=== PATIENT | male | born 1970 ===

== ENCOUNTER 2016-08-15 22:04 | Emergency (ER) | payer BC ==
[2016-08-15] MEDS ORDERED: HYDROCODONE/APAP 5/325MG TABLET PO ONE (22:55)
[2016-08-15] MEDS ORDERED: PROMETHAZINE HCL 25 MG/ML VIAL IM ONE (23:18)
[2016-08-15] MEDS ORDERED: HYDROMORPHONE HCL 2 MG/ML VIAL IM ONE (23:18)
--- NOTE | 2016-08-15 23:52 | Emergency Department Record ---
History of Present Illness - General Chief complaint: Extremity Problem Stated complaint: LT HAND RING FINGER INJURY Time Seen by Provider: 08/15/16 22:52 Source: Patient Mode of Arrival: Ambulatory Limitations: No limitations - History of Present Illness Initial comments: pt smashed finger 2 days ago. now it is swelling and his ring is getting tight. ring is made of nasir RODRIGUES Complaint: Extremity pain, Joint pain, Joint swelling Onset/Timin -: Days(s) Location: Left History of Same: No Consistency: Constant Improves with: Cold therapy, Elevation Worsens with: Exertion, Palpation Associated Symptoms: Denies other symptoms - Related Data Home Medications Medication Instructions Recorded Confirmed Last Taken Aspirin [Adult Low Dose Aspirin EC] 81 mg PO DAILY 06/12/16 06/12/16 08/14/16 Metformin HCl 1,000 mg PO BID 06/12/16 06/12/16 08/14/16 Albuterol Sulfate [Ventolin Hfa] #18 08/06/16 08/14/16 Promethazine HCl/Codeine #150 08/06/16 08/14/16 [Promethazine-Codeine Syrup] Previous Rx's Medication Instructions Recorded Ondansetron [Zofran Odt] 4 mg PO Q8H #10 tab.rapdis 06/12/16 Hydrocodone/Acetaminophen [[place] 1 tab PO Q6H PRN #10 tab 08/16/16 5mg/325mg] Allergies Allergy/AdvReac Type Severity Reaction Status Date / Time No Known Drug Allergies Allergy Verified 08/15/16 22:32 Travel Screening - Travel/Exposure Within Last 30 Days Have you traveled within the last 30 days?: No - Travel/Exposure Within Last Year Have you traveled outside the [place] in the last year?: No - Additonal Travel Details Have you been exposed to anyone with a communicable illness?: No - Travel Symptoms Symptom Screening: None Review of Systems Reviewed: No additional complaints except as noted below Constitutional: Reports: As per HPI. Denies: Chills, Fever, Malaise, Night sweats, Weakness, Weight change Eyes: Reports: As per HPI. Denies: Eye discharge, Eye pain, Photophobia, Vision change ENT: Reports: As per HPI. Denies: Congestion, Dental pain, Ear pain, Epistaxis , Hearing loss, Throat pain Respiratory: Reports: As per HPI. Denies: Cough, Dyspnea, Hemoptysis, Stridor, Wheezes Cardiovascular: Reports: As per HPI. Denies: Arrhythmia, Chest pain, Dyspnea on exertion, Edema, Murmurs, Orthopnea, Palpitations, Paroxysmal nocturnal dyspnea, Rheumatic Fever, Syncope Endocrine: Reports: As per HPI. Denies: Fatigue, Heat or cold intolerance, Polydipsia, Polyuria Gastrointestinal: Reports: As per HPI. Denies: Abdominal pain, Constipation, Diarrhea, Hematemesis, Hematochezia, Melena, Nausea, Vomiting Genitourinary: Reports: As per HPI. Denies: Dysuria, Frequency, Hematuria, Incontinence, Retention, Testicular pain, Testicular mass, Urgency Musculoskeletal: Reports: As per HPI. Denies: Arthralgia, Back pain, Gout, Joint swelling, Myalgia, Neck pain Skin: Reports: As per HPI. Denies: Bruising, Change in color, Change in hair/ nails, Lesions, Pruritus, Rash Neurological: Reports: As per HPI. Denies: Abnormal gait, Confusion, Headache, Numbness, Paresthesias, Seizure, Tingling, Tremors, Vertigo, Weakness Psychiatric: Reports: As per HPI. Denies: Anxiety, Auditory hallucinations, Depression, Homicidal thoughts, Suicidal thoughts, Visual hallucinations Hematological/Lymphatic: Reports: As per HPI. Denies: Anemia, Blood Clots, Easy bleeding, Easy bruising, Swollen glands Past Medical History - SOCIAL HISTORY Smoking Status: Never smoker Alcohol Use: Rare Drug Use: None - RESPIRATORY Hx Respiratory Disorders: No - CARDIOVASCULAR Hx Cardio Disorders: Yes Hx Heart Attack: Yes (01/2016) Hx Hypertension: Yes Comment:: high cholesterol - NEURO Hx Neuro Disorders: No - GI Hx GI Disorders: Yes Hx Diverticulitis: Yes - Hx Genitourinary Disorders: No - ENDOCRINE Hx Endocrine Disorders: Yes Hx Diabetes: Yes - MUSCULOSKELETAL Hx Musculoskeletal Disorders: No - PSYCH Hx Psych Problems: No - HEMATOLOGY/ONCOLOGY Hx Hematology/Oncology Disorders: No Family Medical History Any Significant Family History?: No Family Hx Comment (NOT TO BE USED IN PLACE OF ITEMS BELOW): denies Physical Exam - General General Appearance: Alert, Oriented x3, Cooperative, Mild distress - Head Head exam: Normal inspection - Eye Eye exam: Normal appearance, PERRL, EOMI Pupils: Normal accommodation - ENT ENT exam: Normal exam, Mucous membranes moist, Normal external ear exam, Normal orophraynx, TM's normal bilaterally Ear exam: Normal external inspection. negative: External canal tenderness Nasal Exam: Normal inspection. negative: Discharge, Sinus tenderness Mouth exam: Normal external inspection, Tongue normal Teeth exam: Normal inspection. negative: Dental caries Throat exam: Normal inspection. negative: Tonsillar erythema, Tonsillar exudate - Neck Neck exam: Normal inspection, Full ROM. negative: Tenderness - Respiratory Respiratory exam: Normal lung sounds bilaterally. negative: Respiratory distress - Cardiovascular Cardiovascular Exam: Regular rate, Normal rhythm, Normal heart sounds - GI/Abdominal GI/Abdominal exam: Soft, Normal bowel sounds. negative: Tenderness - Rectal Rectal exam: Deferred - exam: Deferred - Extremities Extremities exam: Normal inspection, Joint swelling, Normal capillary refill, Tenderness. negative: Full ROM Image of Hand: 1 - swelling and tenderness - Back Back exam: Reports: Normal inspection, Full ROM. Denies: Muscle spasm, Rash noted, Tenderness - Neurological Neurological exam: Alert, Normal gait, Oriented X3, Reflexes normal - Psychiatric Psychiatric exam: Normal affect, Normal mood - Skin Skin exam: Dry, Intact, Normal color, Warm Course Vital Signs 08/15/16 22:32 Temperature 98.1 F Pulse Rate 80 Respiratory 18 Rate Blood Pressure 134/66 Pulse Ox 95 - Reevaluation(s) Reevaluation #1: 08/15/16 23:54 an attempt was made to cut ring off with 3 different ring cutters but it would not give as it is made of tungsten. therefore, i wrapped finger in dental floss and was able to inch ring off, preserving finger and ring.. Reevaluation #2: 08/16/16 00:10 pts finger still has swelling and is unable to fully flex and extend. therefore pt will be sent to dr amos Medical Decision Making - Management Options MDM Management: No Additional Work-up Planned - Data Complexity MDM Data: X-Ray Ordered and/or Reviewed - Radiology Data Radiology results: Image reviewed -: Radiology Exam Interpreted by Myself Disposition Disposition: Discharge Clinical Impression: Tendon disorder Jammed interphalangeal joint of finger of left hand Qualifiers: Encounter type: initial encounter Qualified Code(s): S69.92XA - Unspecified injury of left wrist, hand and finger(s), initial encounter Disposition: Home, Self-Care Condition: (1) Good Instructions: Tendon Rupture (ED), Jammed Finger (ED) Additional Instructions: follow up with dr amos. ice and elevate. Prescriptions: Hydrocodone/Acetaminophen [[place] 5mg/325mg] 1 tab PO Q6H PRN #10 tab PRN Reason: Pain - General Referrals: ASHLEY AMOS [MEDICAL DOCTOR] - Forms: Patient Portal Access
--- NOTE | 2016-08-20 09:23 | RADIOLOGY REPORT ---
EXAM: LEFT HAND HISTORY: LEFT HAND PAIN. TECHNIQUE: Three views of the left hand were obtained. Comparison: None. Encounter: Initial. FINDINGS: Negative for fracture or dislocation. The soft tissues are unremarkable. The joint spaces are preserved. IMPRESSION: NEGATIVE LEFT HAND EXAMINATION. JOB NUMBER: [id number] MTDD
== END 2016-08-16 00:50 | disposition home or self-care (01) ==
LOC: ER 22:04
DX: S69.82XA Other specified injuries of left wrist, hand and finger(s), initial encounter (principal); S60.441A External constriction of left index finger, initial encounter; W22.01XA Walked into wall, initial encounter; W49.04XA Ring or other jewelry causing external constriction, initial encounter
CPT/HCPCS: 29130; 99283; 96372; 99284; 73130; J1170; J2550

== ENCOUNTER 2017-02-13 05:17 | Emergency (ER) | payer BC ==
[2017-02-13] MEDS ORDERED: ASPIRIN 81 MG CHEWABLE TABLET PO ONE (05:32)
[2017-02-13] MEDS: NITROGLYCERIN 0.4MG SL TABLET #25 BTL SL PRN ×3 (05:33→05:55)
[2017-02-13] MEDS ORDERED: ONDANSETRON HCL IV 4 MG/2 ML VIAL IVP ONE (05:37)
--- NOTE | 2017-02-13 05:44 | Emergency Department Record ---
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 he had stents in 10/23 and again in 01/23. he has nausea and radiation of the pain to his jaw and l arm. he was awakened w the pain MD Complaint: Chest pain Onset/Timin -: Minutes(s) Onset: Awoke with symptoms Pain Location: Left chest Pain Radiation: LUE Severity scale (1-10): 8 Quality: Tightness Consistency: Constant Improves With: Nothing Worsens With: Inspiration, Movement Anginal Symptoms: Nausea Treatments Prior to Arrival: None - Related Data Home Medications Medication Instructions Recorded Confirmed Last Taken Aspirin [Adult Low Dose Aspirin EC] 81 mg PO DAILY 06/12/16 02/13/17 02/13/17 Allergies Allergy/AdvReac Type Severity Reaction Status Date / Time No Known Drug Allergies Allergy Verified 02/13/17 05:18 Travel Screening - Travel/Exposure Within Last 30 Days Have you traveled within the last 30 days?: No - Travel Symptoms Symptom Screening: None Review of Systems Reviewed: No additional complaints except as noted below Constitutional: Reports: As per HPI. Denies: Chills, Fever, Malaise, Night sweats, Weakness, Weight change Eyes: Reports: As per HPI. Denies: Eye discharge, Eye pain, Photophobia, Vision change ENT: Reports: As per HPI. Denies: Congestion, Dental pain, Ear pain, Epistaxis , Hearing loss, Throat pain Respiratory: Reports: As per HPI. Denies: Cough, Dyspnea, Hemoptysis, Stridor, Wheezes Cardiovascular: Reports: As per HPI. Denies: Arrhythmia, Chest pain, Dyspnea on exertion, Edema, Murmurs, Orthopnea, Palpitations, Paroxysmal nocturnal dyspnea, Rheumatic Fever, Syncope Endocrine: Reports: As per HPI. Denies: Fatigue, Heat or cold intolerance, Polydipsia, Polyuria Gastrointestinal: Reports: As per HPI. Denies: Abdominal pain, Constipation, Diarrhea, Hematemesis, Hematochezia, Melena, Nausea, Vomiting Genitourinary: Reports: As per HPI. Denies: Dysuria, Frequency, Hematuria, Incontinence, Retention, Testicular pain, Testicular mass, Urgency Musculoskeletal: Reports: As per HPI. Denies: Arthralgia, Back pain, Gout, Joint swelling, Myalgia, Neck pain Skin: Reports: As per HPI. Denies: Bruising, Change in color, Change in hair/ nails, Lesions, Pruritus, Rash Neurological: Reports: As per HPI. Denies: Abnormal gait, Confusion, Headache, Numbness, Paresthesias, Seizure, Tingling, Tremors, Vertigo, Weakness Psychiatric: Reports: As per HPI. Denies: Anxiety, Auditory hallucinations, Depression, Homicidal thoughts, Suicidal thoughts, Visual hallucinations Hematological/Lymphatic: Reports: As per HPI. Denies: Anemia, Blood Clots, Easy bleeding, Easy bruising, Swollen glands Past Medical History - SOCIAL HISTORY Smoking Status: Never smoker - RESPIRATORY Hx Respiratory Disorders: No - CARDIOVASCULAR Hx Cardio Disorders: Yes Hx Heart Attack: Yes (2013, 01/2016) Hx Hypertension: Yes Comment:: high cholesterol - NEURO Hx Neuro Disorders: No - GI Hx GI Disorders: Yes Hx Diverticulitis: Yes - Hx Genitourinary Disorders: No - ENDOCRINE Hx Endocrine Disorders: Yes Hx Diabetes: Yes - MUSCULOSKELETAL Hx Musculoskeletal Disorders: No - PSYCH Hx Psych Problems: No - HEMATOLOGY/ONCOLOGY Hx Hematology/Oncology Disorders: No Family Medical History Any Significant Family History?: No Family Hx Comment (NOT TO BE USED IN PLACE OF ITEMS BELOW): denies Physical Exam - General General Appearance: Alert, Oriented x3, Cooperative, Mild distress - Head Head exam: Normal inspection - Eye Eye exam: Normal appearance, PERRL, EOMI Pupils: Normal accommodation - ENT ENT exam: Normal exam, Mucous membranes moist, Normal external ear exam, Normal orophraynx Ear exam: Normal external inspection. negative: External canal tenderness Nasal Exam: Normal inspection. negative: Discharge, Sinus tenderness Mouth exam: Normal external inspection, Tongue normal Teeth exam: Normal inspection. negative: Dental caries Throat exam: Normal inspection. negative: Tonsillar erythema, Tonsillar exudate - Neck Neck exam: Normal inspection, Full ROM. negative: Tenderness - Respiratory Respiratory exam: Normal lung sounds bilaterally. negative: Respiratory distress - Cardiovascular Cardiovascular Exam: Regular rate, Normal rhythm, Normal heart sounds - GI/Abdominal GI/Abdominal exam: Soft, Normal bowel sounds. negative: Tenderness - Rectal Rectal exam: Deferred - exam: Deferred - Extremities Extremities exam: Normal inspection, Full ROM, Normal capillary refill. negative: Tenderness - Back Back exam: Reports: Normal inspection, Full ROM. Denies: Muscle spasm, Rash noted, Tenderness - Neurological Neurological exam: Alert, CN II-XII intact, Normal gait, Oriented X3 - Psychiatric Psychiatric exam: Normal affect, Normal mood - Skin Skin exam: Dry, Intact, Normal color, Warm Course Vital Signs 02/13/17 05:19 Pulse Rate 89 Respiratory 14 Rate Blood Pressure 147/91 Pulse Ox 93 L - Reevaluation(s) Reevaluation #1: 02/13/17 06:19 pt feels better, still has some pain in elbow Reevaluation #2: 02/13/17 06:37 pt conts to feel better. d/w dr raya Medical Decision Making - Management Options MDM Management: Additional Work-up Planned (e.g. ADM/Transfer/OP Study) - Data Complexity MDM Data: Labs Ordered and/or Reviewed, X-Ray Ordered and/or Reviewed, EKG Ordered and/or Reviewed - Lab Data Result diagrams: 02/13/17 05:25 02/13/17 05:25 - EKG Data -: EKG Interpreted by Me EKG: Unchanged From Previous - Radiology Data Radiology results: Image reviewed -: Radiology Exam Interpreted by Myself Disposition Disposition: Transfer Clinical Impression: Chest pain Qualifiers: Chest pain type: chest pain due to myocardial ischemia Ischemic chest pain type : unstable angina pectoris Qualified Code(s): I20.0 - Unstable angina Disposition: Acute Care Hospital Transfer Transfer To: [facility] 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
[2017-02-13 05:55] LABS: HEMATOCRIT 45.1 % (42.0-52.0); HEMOGLOBIN 15.9 gm/dl (14.0-18.0); MEAN CELL VOLUME 85.6 fl (81-97); MEAN CORPUSCULAR HEMOGLOBIN 30.2 pg (27-33); MEAN CORPUSCULAR HGB CONC 35.3 g/dl (32-36); PLATELET COUNT 223 K/uL (130-400); RED BLOOD COUNT 5.27 M/uL (4.40-5.70); WHITE BLOOD COUNT W/O DIFF 9.8 K/uL (4.2-12.2)
[2017-02-13 06:05] LABS: ANION GAP 15.2 (7-16); BLOOD UREA NITROGEN 20 mg/dL (9-20); CARBON DIOXIDE 22.8 mmol/L (22-30); CREATINE PHOSPHOKINASE 301 U/L (55-170); CREATININE 0.9 mg/dL (0.66-1.25); EST GLOMERULAR FILTRATION RATE > 60 ml/min; GLUCOSE,RANDOM 179 mg/dL (70-110)
[2017-02-13 06:17] LABS: CKMB 2.2 ug/L (0-6)
[2017-02-13 06:18] LABS: TROPONIN I < 0.012 ng/mL (0.00-0.034)
[2017-02-13] MEDS ORDERED: ACETAMINOPHEN 325 MG TAB PO ONE (06:25)
[2017-02-13] MEDS ORDERED: HEPARIN SODIUM 1000 UNIT/1 ML 10ML VIAL IVP ONE (06:35)
[2017-02-13] MEDS ORDERED: HEPARIN SODIUM/D5W 25,000 UNITS/500 ML BAG IV SCH ×2 (06:45)
--- NOTE | 2017-02-13 08:15 | Emergency Department Record ---
History of Present Illness - General Chief Complaint: Chest Pain Stated Complaint: CHEST PAIN Time Seen by Provider: 02/13/17 05:29 Source: Patient Mode of Arrival: Ambulatory Limitations: No limitations - History of Present Illness Onset/Timin -: Minutes(s) Onset: Awoke with symptoms Pain Location: Left chest Pain Radiation: LUE Severity scale (1-10): 8 Quality: Tightness Consistency: Constant Improves With: Nothing Worsens With: Inspiration, Movement Anginal Symptoms: Nausea Treatments Prior to Arrival: None - Related Data Home Medications Medication Instructions Recorded Confirmed Last Taken Aspirin [Adult Low Dose Aspirin EC] 81 mg PO DAILY 06/12/16 02/13/17 02/13/17 Allergies Allergy/AdvReac Type Severity Reaction Status Date / Time No Known Drug Allergies Allergy Verified 02/13/17 05:18 Travel Screening - Travel/Exposure Within Last 30 Days Have you traveled within the last 30 days?: No - Travel Symptoms Symptom Screening: None Review of Systems Constitutional: Reports: As per HPI. Denies: Chills, Fever, Malaise, Night sweats, Weakness, Weight change Eyes: Reports: As per HPI. Denies: Eye discharge, Eye pain, Photophobia, Vision change ENT: Reports: As per HPI. Denies: Congestion, Dental pain, Ear pain, Epistaxis , Hearing loss, Throat pain Respiratory: Reports: As per HPI. Denies: Cough, Dyspnea, Hemoptysis, Stridor, Wheezes Cardiovascular: Reports: As per HPI. Denies: Arrhythmia, Chest pain, Dyspnea on exertion, Edema, Murmurs, Orthopnea, Palpitations, Paroxysmal nocturnal dyspnea, Rheumatic Fever, Syncope Endocrine: Reports: As per HPI. Denies: Fatigue, Heat or cold intolerance, Polydipsia, Polyuria Gastrointestinal: Reports: As per HPI. Denies: Abdominal pain, Constipation, Diarrhea, Hematemesis, Hematochezia, Melena, Nausea, Vomiting Genitourinary: Reports: As per HPI. Denies: Dysuria, Frequency, Hematuria, Incontinence, Retention, Testicular pain, Testicular mass, Urgency Musculoskeletal: Reports: As per HPI. Denies: Arthralgia, Back pain, Gout, Joint swelling, Myalgia, Neck pain Skin: Reports: As per HPI. Denies: Bruising, Change in color, Change in hair/ nails, Lesions, Pruritus, Rash Neurological: Reports: As per HPI. Denies: Abnormal gait, Confusion, Headache, Numbness, Paresthesias, Seizure, Tingling, Tremors, Vertigo, Weakness Psychiatric: Reports: As per HPI. Denies: Anxiety, Auditory hallucinations, Depression, Homicidal thoughts, Suicidal thoughts, Visual hallucinations Hematological/Lymphatic: Reports: As per HPI. Denies: Anemia, Blood Clots, Easy bleeding, Easy bruising, Swollen glands Past Medical History - SOCIAL HISTORY Smoking Status: Never smoker - RESPIRATORY Hx Respiratory Disorders: No - CARDIOVASCULAR Hx Cardio Disorders: Yes Hx Heart Attack: Yes (2013, 01/2016) Hx Hypertension: Yes Comment:: high cholesterol - NEURO Hx Neuro Disorders: No - GI Hx GI Disorders: Yes Hx Diverticulitis: Yes - Hx Genitourinary Disorders: No - ENDOCRINE Hx Endocrine Disorders: Yes Hx Diabetes: Yes - MUSCULOSKELETAL Hx Musculoskeletal Disorders: No - PSYCH Hx Psych Problems: No - HEMATOLOGY/ONCOLOGY Hx Hematology/Oncology Disorders: No Family Medical History Any Significant Family History?: No Family Hx Comment (NOT TO BE USED IN PLACE OF ITEMS BELOW): denies Physical Exam - General Limitations: No limitations Course Vital Signs 02/13/17 02/13/17 02/13/17 05:19 05:33 05:43 Pulse Rate 89 96 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 ] Respiratory 14 24 24 Rate Blood Pressure 147/91 Blood Pressure 151/83 131/69 [Right Arm] Pulse Ox 93 L 92 L 95 02/13/17 02/13/17 02/13/17 05:53 06:11 06:52 Pulse Rate Pulse Rate [ 92 H 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 ] Respiratory 18 24 24 Rate Blood Pressure Blood Pressure 126/68 130/90 135/84 [Right Arm] Pulse Ox 95 96 98 02/13/17 07:27 Pulse Rate Pulse Rate [ 80 Construction Laborer ] Respiratory 18 Rate Blood Pressure Blood Pressure 142/81 [Right Arm] Pulse Ox 96 - Reevaluation(s) Reevaluation #1: The case was signed over by Dr Nathan Awaiting a bed at [facility] Sleeping Negative initial troponin 02/13/17 07:05 02/13/17 08:14 Awake 0/10 pain Awaiting bed from [facility] records reviewed 2016 RCA and LAD stent 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 Reevaluation #2: The patient remains pain free Dr Lloyd called to receive and update [facility] called and a bed is ready, report called and EMS called for transport Patient is stable for transport 02/13/17 08:35 Medical Decision Making - Lab Data Result diagrams: 02/13/17 05:25 02/13/17 05:25 Lab Results 02/13/17 02/13/17 02/13/17 Range/Units 05:25 05:25 05:25 WBC 9.8 (4.2-12.2) K/uL RBC 5.27 (4.40-5.70) M/uL Hgb 15.9 (14.0-18.0) gm/dl Hct 45.1 (42.0-52.0) % MCV 85.6 (81-97) fl MCH 30.2 (27-33) pg MCHC 35.3 (32-36) g/dl RDW 13.0 (11.5-14.5) % Plt Count 223 (130-400) K/uL MPV 11.0 H (7.4-10.4) fl Neutrophils % 88.0 H (47-80) % Band Neutrophils % 0.0 (0-5) % Eosinophils % Not Reportable Basophils % Not Reportable Lymphocytes 7.0 L (16-45) % Monocytes 4.0 (0-9) % Basophils 0.0 (0-6) % Eosinophil Count 1.0 (0-6) % APTT 26.40 (24.5-39.1) SECONDS Sodium 138 (136-145) mmol/L Potassium 3.9 (3.5-5.1) mmol/L Chloride 100 (98-107) mmol/L Carbon Dioxide 22.8 (22-30) mmol/L Anion Gap 15.2 (7-16) BUN 20 (9-20) mg/dL Creatinine 0.9 (0.66-1.25) mg/dL Estimated GFR > 60 ml/min Random Glucose 179 H (70-110) mg/dL Calcium 9.3 (8.5-10.1) mg/dL Creatine Kinase 301 H (55-170) U/L CK-MB (CK-2) 2.2 (0-6) ug/L Troponin I < 0.012 (0.00-0.034) ng/mL Disposition Disposition: Transfer Clinical Impression: Chest pain Qualifiers: Chest pain type: chest pain due to myocardial ischemia Ischemic chest pain type : unstable angina pectoris Qualified Code(s): I20.0 - Unstable angina Disposition: Acute Care Hospital [facility] Reason For Transfer: Chest Pain Accepting Physician: Lloyd Time Discussed w/Accepting Physician: 08:36 Condition: (1) Good Forms: Patient Portal Access Time of Disposition: 08:36
--- NOTE | 2017-02-13 11:38 | RADIOLOGY REPORT ---
EXAM: PORTABLE CHEST HISTORY: DIFFICULTY BREATHING. TECHNIQUE: A portable semi-upright view of the chest was performed. FINDINGS: The heart size is normal. There is mild pulmonary vascular congestion. The osseous structures are normal. IMPRESSION: MILD PULMONARY VASCULAR CONGESTION. JOB NUMBER: [id number] MTDD
== END 2017-02-13 08:47 | disposition short-term general hospital (02) ==
LOC: ER 05:17
DX: I20.0 Unstable angina (principal); R11.0 Nausea; I25.2 Old myocardial infarction; I10 Essential (primary) hypertension; E11.9 Type 2 diabetes mellitus without complications
CPT/HCPCS: 99285 ×2; 96365; 96366; 96375; 82550; 85730; 82553; 84484; 80048; 85027; 71010; 93005; 93010; J2405

== ENCOUNTER 2017-07-02 19:38 | Emergency (ER) | payer BC ==
[2017-07-02] MEDS ORDERED: 0.9 % SODIUM CHLORIDE 1,000 ML BAG IV ONE (19:50)
[2017-07-02] MEDS ORDERED: ONDANSETRON HCL IV 4 MG/2 ML VIAL IV ONE (19:50)
[2017-07-02] MEDS ORDERED: MORPHINE SULFATE 5 MG/ML PFS IVP ONE ×2 (19:51→22:56)
--- NOTE | 2017-07-02 19:59 | Emergency Department Record ---
History of Present Illness - General Chief Complaint: Abdominal Pain Stated Complaint: SHARP PAIN IN LT RIB, BLOOD IN STOOL, VOMITING Time Seen by Provider: 07/02/17 19:41 Source: Patient, Family Mode of Arrival: Ambulatory Limitations: No limitations - History of Present Illness Initial Comments: 46 yo male presents with about 6 weeks of intermittent upper abdominal pain. The pain has been in the upper abdomen currently mostly in the LUQ. She has has some changes in appetite with some nausea and has vomited. No blood in the vomit. No diarrhea. The pain comes and goes. He has seen blood in his stools at times. None currently. The pain dose seem to worsen with eating. He did see his PCP. Labs and US were recently performed. He has a history of persistently elevated LFTS mildly. He denies a history of prior endoscopy. No current GI specialist. No fever. No rash. Occasional alcohol consumptions. PCP Fernander. RODRIGUES Complaint: Abdominal pain -: Week(s) (6) Location: LUQ Radiation: LUQ Migration to: LUQ Quality: Aching Consistency: Constant Improves With: Nothing Worsens With: Eating Context: Other Associated Symptoms: Anorexia, Hematochezia (occasionally), Nausea, Vomiting ( intermittently) - Related Data Home Medications Medication Instructions Recorded Confirmed Last Taken Atorvastatin Calcium [Atorvastatin 80 mg PO QPM 07/02/17 07/02/17 Unknown Calcium] Glipizide [Glucotrol] 5 mg PO DAILY 07/02/17 07/02/17 Unknown Losartan Potassium 25 mg PO DAILY 07/02/17 07/02/17 Unknown Magnesium Oxide [Magnesium] 400 mg PO DAILY 07/02/17 07/02/17 Unknown Previous Rx's Medication Instructions Recorded Ondansetron [Zofran Odt] 4 mg PO Q8H #20 tab.rapdis 07/02/17 Allergies Allergy/AdvReac Type Severity Reaction Status Date / Time No Known Drug Allergies Allergy Verified 07/02/17 19:43 Review of Systems Constitutional: Denies: Chills, Fever, Malaise, Weakness Eyes: Denies: Eye discharge, Eye pain, Photophobia, Vision change ENT: Denies: Congestion, Throat pain Respiratory: Denies: Cough, Dyspnea, Hemoptysis, Stridor, Wheezes Cardiovascular: Denies: Chest pain, Palpitations, Syncope Endocrine: Denies: Fatigue Gastrointestinal: Reports: Abdominal pain, Hematochezia (occasionally small amount noted), Nausea, Vomiting. Denies: Constipation, Diarrhea, Hematemesis, Melena Genitourinary: Denies: Dysuria, Frequency Musculoskeletal: Denies: Arthralgia, Back pain, Joint swelling, Myalgia Skin: Denies: Bruising, Change in color, Rash Neurological: Denies: Confusion, Headache, Numbness, Weakness Psychiatric: Denies: Anxiety Hematological/Lymphatic: Denies: Blood Clots, Easy bleeding, Easy bruising, Swollen glands Past Medical History - SOCIAL HISTORY Smoking Status: Never smoker - RESPIRATORY Hx Respiratory Disorders: No - CARDIOVASCULAR Hx Cardio Disorders: Yes Hx Heart Attack: Yes (2013, 01/2016) Hx Hypertension: Yes Comment:: high cholesterol - NEURO Hx Neuro Disorders: No - GI Hx GI Disorders: Yes Hx Diverticulitis: Yes - Hx Genitourinary Disorders: No - ENDOCRINE Hx Endocrine Disorders: Yes Hx Diabetes: Yes - MUSCULOSKELETAL Hx Musculoskeletal Disorders: No - PSYCH Hx Psych Problems: No - HEMATOLOGY/ONCOLOGY Hx Hematology/Oncology Disorders: No Family Medical History Family Hx Comment (NOT TO BE USED IN PLACE OF ITEMS BELOW): denies Physical Exam - General General Appearance: Alert, Oriented x3, Cooperative, No acute distress Limitations: No limitations - Head Head exam: Atraumatic - Eye Eye exam: Normal appearance, PERRL. negative: Conjunctival injection, Scleral icterus Pupils: Normal accommodation - ENT ENT exam: Normal exam, Mucous membranes moist Ear exam: Normal external inspection Nasal Exam: Normal inspection Mouth exam: Normal external inspection - Neck Neck exam: Normal inspection - Respiratory Respiratory exam: Normal lung sounds bilaterally. negative: Respiratory distress - Cardiovascular Cardiovascular Exam: Regular rate, Normal rhythm, Normal heart sounds - GI/Abdominal GI/Abdominal exam: Soft, Normal bowel sounds, Tenderness (Tender epigastric to LUQ). negative: Distended, Guarding, Hypoactive bowel sounds, Mass, Organomegaly, Rebound, Rigid - Rectal Rectal exam: Heme (+) stool, Normal inspection. negative: Hemorrhoids - exam: Deferred - Extremities Extremities exam: Normal inspection, Full ROM, Normal capillary refill. negative: Tenderness - Back Back exam: Reports: Normal inspection, Full ROM. Denies: CVA tenderness (R), CVA tenderness (L), Muscle spasm, Paraspinal tenderness, Rash noted, Tenderness , Vertebral tenderness - Neurological Neurological exam: Alert, Normal gait, Oriented X3 - Psychiatric Psychiatric exam: Normal affect, Normal mood - Skin Skin exam: Dry, Intact, Normal color, Warm Course - Reevaluation(s) Reevaluation #1: The EMR was reviewed Abdominal US was reviewed from 07/01/17 Limited, Coarse liver texture, Rec CT due to limited US. LFT 07/01/17 Tbili .6, AST 86, ALT 135, AP 93 07/02/17 19:54 07/02/17 20:12 No acute changes on the CBC. WBC is 6.2 with Hgb of 15.2. No changes from most recent labs. 07/02/17 20:26 The LFT's were reviewed No acute changes The Lipase and Amylase were normal 07/02/17 22:35 CT was read as steatosis no other acute process. 07/02/17 23:44 I reviewed the labs, the CT scan and exam No acute changes on the labs or CT The patient was referred to GI for his symptoms His information will be provided to his PCP to facilitate an outpatient work up Medical Decision Making - Lab Data Result diagrams: 07/02/17 19:52 07/02/17 19:52 Disposition Disposition: Discharge Clinical Impression: Abdominal pain Disposition: Home, Self-Care Condition: (1) Good Instructions: Abdominal Pain (ED) Additional Instructions: Return or go to an ER if worse, fever, pain, or new concerns You will need to follow up this week with your doctor as well to plan additional work up Prescriptions: Ondansetron [Zofran Odt] 4 mg PO Q8H #20 tab.rapdis Referrals: ESHA REN [DOCTOR OF OSTEOPATH] - [facility] [Provider Group] Forms: Patient Portal Access Time of Disposition: 22:42 Quality - Quality Measures Quality Measures: N/A - Blood Pressure Screening Does Patient Have Any of the Following: No Blood Pressure Classification: Hypertensive Reading Systolic Measurement: 148 Diastolic Measurement: 75 Screening for High Blood Pressure: < Pre-Hypertensive BP, F/U Documented > [ [id number]] Pre-Hypertensive Follow-up Interventions: Referral to alternative/primary care provider.
[2017-07-02 20:01] LABS: BASO % 0.5 % (0-6); EOS % 3.2 % (0-6); HEMATOCRIT 42.7 % (42.0-52.0); HEMOGLOBIN 15.2 gm/dl (14.0-18.0); LYMPH % 27.3 % (16-45); MEAN CELL VOLUME 82.9 fl (81-97); MEAN CORPUSCULAR HEMOGLOBIN 29.5 pg (27-33); MEAN CORPUSCULAR HGB CONC 35.6 g/dl (32-36); PLATELET COUNT 212 K/uL (130-400); RED BLOOD COUNT 5.15 M/uL (4.40-5.70); RED CELL DISTRIBUTION WIDTH 12.7 % (11.5-14.5); WHITE BLOOD COUNT W/O DIFF 6.6 K/uL (4.2-12.2)
[2017-07-02 20:15] LABS: BLOOD UREA NITROGEN 18 mg/dL (6-20); EST GLOMERULAR FILTRATION RATE > 60 mL/min; TOTAL PROTEIN 7.2 g/dL (6.6-8.7)
[2017-07-02 20:17] LABS: AMYLASE 41 U/L (28-100); GLUCOSE,RANDOM 237 mg/dL (74-109)
[2017-07-02 20:20] LABS: ALBUMIN 4.1 g/dL (4.0-5.0); ALKALINE PHOSPHATASE 110 U/L (40-129); ALT/SGPT 107 U/L (<41); AST/SGOT 58 U/L (10.0-50.0); LIPASE 35 U/L (13-60)
[2017-07-02 20:21] LABS: BILIRUBIN,DIRECT < 0.2 mg/dL (0-0.3)
[2017-07-02] MEDS ORDERED: HYDROCODONE/APAP 5/325MG TABLET PO ONE (22:56)
[2017-07-02] MEDS ORDERED: DICYCLOMINE HCL 10 MG CAPSULE PO ONE (22:56)
[2017-07-02] MEDS ORDERED: ONDANSETRON 4 MG ODT TABLET SL ONE (22:56)
--- NOTE | 2017-07-03 08:47 | CT SCAN REPORT ---
EXAM: CT SCAN OF THE ABDOMEN AND PELVIS HISTORY: LEFT UPPER QUADRANT SEVERE PAIN. NAUSEA AND VOMITING. FATTY STOOL. BLOOD IN STOOL. TECHNIQUE: Serial axial CT scan of the abdomen and pelvis was performed at 3.75 mm intervals from the dome of the diaphragm down to the pubic symphysis following the intravenous administration of 96 ml of Omnipaque 300. Oral contrast was administered. Comparison: CT scan of the abdomen and pelvis dated 06/12/16 is provided. FINDINGS: The lung windows of the lung bases are clear. The visualized heart size and contour is within normal limits. There is diffuse fatty infiltration identified throughout the liver. The contour and size of the liver is within normal limits. No suspicious hepatic lesions are identified. The spleen, pancreas, gallbladder, and adrenal glands are unremarkable. There is no CT evidence of hydronephrosis or hydroureter. No renal or ureteral calculi are noted. Simple small exophytic cysts from the mid pole of the left kidney is unchanged with respect to the prior CT scan. The contour, caliber, and flow within the abdominal aorta is within normal limits. There is no CT evidence of retroperitoneal, pelvic, or inguinal lymphadenopathy. The bowel gas pattern is nonspecific and nonobstructive. The appendix is clearly visualized and there is no CT evidence of appendicitis. There is no CT evidence of free intraperitoneal fluid or free intraperitoneal air. Occasional colonic diverticula are noted without CT evidence of diverticulitis. The urinary bladder is unremarkable. Bilateral fat containing indirect inguinal hernias are unchanged with respect to the prior CT scan. Bone windows demonstrate no CT evidence of a fracture or dislocation of the osseous structures of the abdomen and pelvis. Degenerative disk disease of the lower lumbar spine is again noted. IMPRESSION: 1. DIFFUSE HEPATIC STEATOSIS. 2. COLONIC DIVERTICULOSIS WITHOUT CT EVIDENCE OF DIVERTICULITIS. 3. INDIRECT INGUINAL HERNIAS ARE STABLE WITH RESPECT TO THE PRIOR CT SCAN. JOB NUMBER: [id number] [facility]
== END 2017-07-02 23:28 | disposition home or self-care (01) ==
LOC: ER 19:38
DX: R10.12 Left upper quadrant pain (principal); R11.2 Nausea with vomiting, unspecified; K92.1 Melena; I10 Essential (primary) hypertension; E11.9 Type 2 diabetes mellitus without complications; I25.2 Old myocardial infarction
CPT/HCPCS: 99284 ×2; 96376; 96374; 96375; 96361; 82150; 83690; 85025; 80076; 80048; 74177; Q9967; J2405; J2270; J7030